=== PATIENT | female | born 1990 | race Caucasian/White ===

== ENCOUNTER 2018-02-28 12:58 | Emergency (ER) | payer MEDICAID, OTHER ==
[~2018-02-28] VITALS: Ht 172.7 cm; Wt 79.8 kg
[2018-02-28 13:22] VITALS: BP 155/82
== END 2018-02-28 17:55 | disposition left against medical advice (07) ==
LOC: ER 13:01
DX: M54.6 Pain in thoracic spine (principal); Z53.21 Procedure and treatment not carried out due to patient leaving prior to being seen by health care provider

== ENCOUNTER 2020-10-09 23:09 | Emergency (ER) | payer MEDICAID ==
[~2020-10-09] VITALS: Ht 167.6 cm; Wt 86.2 kg
[~2020-10-09 23:09] MED LIST: ASPI81CH43 PO; CAR125T PO; DICL500C76 PO; DOXY-286 PO; NIC21P TOP; SACU1TAB PO
[2020-10-10 03:44] VITALS: BP 142/80
[2020-10-10] MEDS ORDERED: HYDROcodone-ACET 10/325MG TAB PO ONE (04:15)
[2020-10-10] MEDS ORDERED: ONDANSETRON ODT 4 MG TAB PO ONE (04:15)
== END 2020-10-10 04:15 | disposition home or self-care (01) ==
LOC: EDBD 23:09 → ER 23:11
DX: S16.1XXA Strain of muscle, fascia and tendon at neck level, initial encounter (principal); S83.91XA Sprain of unspecified site of right knee, initial encounter; S39.012A Strain of muscle, fascia and tendon of lower back, initial encounter; S93.401A Sprain of unspecified ligament of right ankle, initial encounter; V49.9XXA Car occupant (driver) (passenger) injured in unspecified traffic accident, initial encounter; Y93.89 Activity, other specified; Y92.89 Other specified places as the place of occurrence of the external cause; Y99.8 Other external cause status
CPT/HCPCS: 29505; 70450; 72125; 72128; 72131; 73562; 73610; 99285; Q0162